=== PATIENT | female | born 1935 | race Caucasian/White ===

== ENCOUNTER 2019-08-27 10:00 | Inpatient (IN) | payer MEDICARE ==
[2019-08-26 13:45] LABS: INR 0.94 (0.85-1.15); PROTHROMBIN TIME 10.2 SEC (9.6-11.6)
[2019-08-26 14:08] LABS: APPEARANCE,URINE Clear (CLEAR); BILIRUBIN,URINE Negative (NEGATIVE); COLOR,URINE Dark Yellow (YELLOW); GLUCOSE, URINE (UA) Negative (NEGATIVE); KETONES,URINE Negative (NEGATIVE); LEUKOCYTE ESTERASE ,URINE Small (NEGATIVE); NITRATE,URINE Negative (NEGATIVE); OCCULT BLOOD,URINE Negative (NEGATIVE); PROTEIN,URINE Negative (NEGATIVE)
[2019-08-26 14:26] LABS: BACTERIA,URINE Rare /HPF (None Seen); RBC,URINE 0-1 /HPF (0-1); SQUAMOUS EPITHELIAL CELL,UR Rare /HPF (0-2)
[~2019-08-27] VITALS: Ht 172.7 cm; Wt 74.0 kg
[~2019-08-27 10:00] MED LIST: ASPI-1443 PO; CHOL200074 PO; GABA-529 PO; PANT40TA54 PO; SERT25TA5 PO; SIMV40TA59 PO; VITA1TAB39 PO
--- NOTE | 2019-08-28 11:18 | NUR ---
LABS ABNORMAL UA REPORTED TO DR. MCGRATH, FURTHER ORDERS GIVEN AND WILL BE CARRIED OUT
[2019-08-28 17:35] VITALS: BP 141/61
[2019-08-28] MEDS ORDERED: HYDR-4060 PO (18:00)
[2019-08-28] MEDS ORDERED: CLON0.1T PO (18:00)
[2019-08-28] MEDS ORDERED: CETI10TA57 PO (18:00)
[2019-08-28] MEDS ORDERED: POLY17PO4 PO (18:00)
[2019-08-31] VITALS (22 sets, daily range): BP systolic 120–187; BP diastolic 56–136
[2019-08-31] MEDS ORDERED: GENTAMICIN SULFATE 240 MG in SODIUM CHLORIDE 0.9% 100 ML IV SCH (07:15)
[2019-08-31] MEDS: CEFAZOLIN SODIUM 1 GM VIAL IVP SCH ×3 (07:30→19:00)
[2019-08-31] MEDS ORDERED: LACTATED RINGERS 1000ML 1,000 ML IV ONE (07:42)
[2019-08-31] MEDS ORDERED: TRANEXAMIC ACID 1000MG/10ML ONE ×2 (08:51→13:27)
[2019-08-31] MEDS ORDERED: CEFAZOLIN SODIUM 1 GM VIAL ONE (08:51)
[2019-08-31] MEDS ORDERED: SCOPOLAMINE HYDROBROMIDE 1 EACH ADH..PATCH TD ONE (09:35)
[2019-08-31] MEDS ORDERED: ROPIVACAINE 0.5% 5MG/ML 30ML IJ ONE (09:36)
[2019-08-31] MEDS ORDERED: ONDANSETRON HCL 4 MG/2 ML VIAL ONE (09:46)
[2019-08-31] MEDS ORDERED: LIDOCAINE PF 2% 5ML ABBOJECT ONE (09:46)
[2019-08-31] MEDS ORDERED: GLYCOPYRROLATE 1 MG/5 ML SYRINGE ONE (09:46)
[2019-08-31] MEDS ORDERED: DEXAMETHASONE SOD PHOSPHATE 10MG/ML 1ML VIAL ONE (09:46)
[2019-08-31] MEDS ORDERED: ROCURONIUM 10MG/1ML SYR 10 MG/ML ML ONE (09:47)
[2019-08-31] MEDS ORDERED: FENTANYL CITRATE PF 50 MCG/1 ML 5ML AMP IV ONE (09:47)
[2019-08-31] MEDS ORDERED: NEOSTIGMINE 5MG/5ML SYR IV ONE (09:47)
[2019-08-31] MEDS ORDERED: PROPOFOL 10 MG/ML 20ML VIAL IV ONE (09:47)
[2019-08-31] MEDS ORDERED: EPHEDRINE SULFATE 50 MG/ML AMPULE ONE (10:43)
[2019-08-31] MEDS ORDERED: HETASTARCH IN 0.9 % NACL 500 ML IV ONE (10:52)
[2019-08-31] MEDS ORDERED: CEFAZOLIN SODIUM 1 GM VIAL IRRIG ONE (11:23)
[2019-08-31] MEDS ORDERED: ESMOLOL HCL 10 MG/ML 10 ML VIAL ONE (11:31)
[2019-08-31] MEDS ORDERED: POTASSIUM CHLORIDE 10% ELIXIR 20 MEQ/15 ML UDCUP PO PRN (13:00)
[2019-08-31] MEDS ORDERED: LIDOCAINE HCL-MPF 1% 2ML VIAL IV PRN (13:00)
[2019-08-31] MEDS ORDERED: POTASSIUM CHLORIDE 20 MEQ ERTAB PO PRN (13:00)
[2019-08-31] MEDS ORDERED: FERROUS FUMARATE 324 MG TABLET PO PRN (13:00)
[2019-08-31] MEDS ORDERED: POTASSIUM CHLORIDE 20MEQ/100ML 100 ML IV PRN (13:00)
[2019-08-31] MEDS ORDERED: CALCIUM CARBONATE 500 MG TABLET PO PRN (13:00)
[2019-08-31] MEDS ORDERED: DiphenhydrAMINE HCL 50 MG/ML VIAL IVP PRN (13:00)
[2019-08-31] MEDS ORDERED: MORPHINE SULFATE 4 MG/1ML SYG ONE (13:21)
[2019-08-31] MEDS ORDERED: MEPERIDINE-PF 25 MG/ML SYG ONE ×2 (13:33→13:44)
[2019-08-31] MEDS: KETOROLAC TROMETHAMINE 15MG/ML IV PRN ×2 (13:34→19:15)
[2019-08-31] MEDS: SODIUM CHLORIDE 0.9% 1000ML 1,000 ML IV SCH ×2 (14:20→16:21)
[2019-08-31] MEDS ORDERED: POLYETHYLENE GLYCOL 3350 17 GM POWD.PACK PO PRN (15:30)
[2019-08-31] MEDS ORDERED: CLONIDINE HCL 0.1 MG TABLET PO PRN (15:30)
[2019-08-31] MEDS: ACETAMINOPHEN EXTRA STRENGTH 500 MG TABLET PO SCH ×2 (15:46→20:18)
--- NOTE | 2019-08-31 16:42 | NUR ---
LAURIE PLAN VISITED WITH PATIENT. PATIENT LIVES WITH DAUGHTER. INDEPENDENT ABLE TO PERFORM ADL'S. PATIENT HAS WALKER AND SHOWER CHAIR, BSC FROM LAST SURGERY. VERBAL CONSENT GIVEN FOR WIR. INFO FAXED. [facility] NOTIFIED. [facility] WILL CONTINUE TO FOLLOW. Addendum: 08/31/19 at 1645 by AUSTIN JIMENEZ RN CM Amended: Links added.
[2019-08-31] MEDS ORDERED: OXYCODONE HCL 5 MG TAB ONE ×3 (16:43→22:24)
--- NOTE | 2019-08-31 16:46 | NUR ---
pt was still in sever pain and pharmacy has not made the oxycodone accessable i spoke to pharmacy on the phone a 1/2 hour ago and the said they would release the hold on oxycodone since pt does take hydrocodone already at home with no allergic reactions; when i scanned the medication to give it stated it was still on hold, i did give the medications because of the pt's severe pain at that time.
[2019-08-31] MEDS ORDERED: PROMETHAZINE HCL 25 MG/ML 1ML AMPULE IM PRN (17:30)
[2019-08-31] MEDS ORDERED: HYDROMORPHONE 1 MG/1 ML AMP ONE (19:14)
[2019-08-31] MEDS ORDERED: NALOXONE HCL 0.4 MG/1 ML ML IVP PRN (19:15)
[2019-08-31] MEDS ORDERED: HYDROMORPHONE PCA 10 MG/50 ML 50 ML IV PRN (19:15)
[2019-08-31] MEDS: FAMOTIDINE 20MG TAB 20 MG TAB PO SCH (20:12)
[2019-08-31] MEDS: GABAPENTIN 100 MG CAPSULE PO SCH (20:12)
[2019-08-31] MEDS: CELECOXIB 200 MG CAP PO SCH (20:13)
[2019-08-31] MEDS: CETIRIZINE HCL 5 MG TABLET PO SCH (20:13)
[2019-08-31] MEDS: SIMVASTATIN 20 MG TABLET PO SCH (20:13)
[2019-08-31] MEDS: ASPIRIN 81MG TAB.CHEW PO SCH (20:13)
[2019-08-31] MEDS: PANTOPRAZOLE SODIUM 40 MG TABLET.DR PO SCH (20:13)
[2019-08-31] MEDS: HYDROMORPHONE 1 MG/1 ML AMP IVP PRN ×2 (21:05→23:17)
[2019-08-31] MEDS: OXYCODONE HCL 5 MG TAB PO PRN (22:27)
[2019-09-01] VITALS: BP 122/52
[2019-09-01] MEDS: CEFAZOLIN SODIUM 1 GM VIAL IVP SCH (01:07)
[2019-09-01] MEDS: HYDROMORPHONE 1 MG/1 ML AMP IVP PRN ×4 (01:08→23:14)
[2019-09-01 04:00] VITALS: BP 123/49
[2019-09-01] MEDS: ACETAMINOPHEN EXTRA STRENGTH 500 MG TABLET PO SCH ×3 (05:23→20:15)
[2019-09-01 05:49] LABS: MEAN CORPUSCULAR HEMOGLOBIN 27.9 pg (27.0-33.0); MEAN CORPUSCULAR HGB CONC 31.8 g/dL (32.0-36.0); MEAN CORPUSCULAR VOLUME 87.8 fL (79-99); RED BLOOD CELL COUNT(AUTO) 2.22 MIL/uL (4.00-5.50); WHITE BLOOD COUNT (AUTO) 8.6 K/uL (4.8-10.8)
[2019-09-01 05:51] LABS: HEMATOCRIT 19.5 % (36-48)
[2019-09-01 05:57] LABS: POTASSIUM 4.4 mmol/L (3.5-5.1)
[2019-09-01 06:47] LABS: HEMATOCRIT 19.6 % (36-48)
[2019-09-01 08:37] VITALS: BP 121/51
[2019-09-01] MEDS: SODIUM CHLORIDE 0.9% 1000ML 1,000 ML IV SCH (08:52)
[2019-09-01] MEDS ORDERED: SODIUM CHLORIDE 0.9% 250 ML IV ONE (08:52)
[2019-09-01] MEDS: SERTRALINE HCL 50 MG TABLET PO SCH (08:57)
[2019-09-01] MEDS: CHOLECALCIFEROL 2000 UNIT PO SCH (09:00)
[2019-09-01] MEDS: GABAPENTIN 100 MG CAPSULE PO SCH ×3 (09:00→20:15)
[2019-09-01] MEDS: CELECOXIB 200 MG CAP PO SCH ×2 (09:00→20:14)
[2019-09-01] MEDS: VITAMIN B COMPLEX 1 CAPSULE PO SCH (09:01)
[2019-09-01] MEDS: FAMOTIDINE 20MG TAB 20 MG TAB PO SCH ×2 (09:01→20:14)
[2019-09-01] MEDS: PANTOPRAZOLE SODIUM 40 MG TABLET.DR PO SCH ×2 (09:01→20:14)
[2019-09-01] MEDS: POLYETHYLENE GLYCOL 3350 17 GM POWD.PACK PO SCH (09:02)
[2019-09-01] MEDS: ASPIRIN 81MG TAB.CHEW PO SCH ×2 (09:02→20:14)
[2019-09-01] MEDS: KETOROLAC TROMETHAMINE 15MG/ML IV PRN (09:03)
--- NOTE | 2019-09-01 09:10 | NUR ---
FIRST UNIT OF BLOODN INITIATED; VS STABLE PRE TRANSFUSION; I DISCUSSED WITH PT SIGNS AND SYMPTOMS TO REPORT OR ANY CONCERNS AT ALL TO REPORT.
[2019-09-01] MEDS ORDERED: FUROSEMIDE 10 MG/ML 2ML VIAL IV SCH (10:00)
[2019-09-01 11:17] VITALS: BP 130/61
[2019-09-01] MEDS: OXYCODONE HCL 5 MG TAB PO PRN ×2 (12:45→20:18)
[2019-09-01 16:35] VITALS: BP 131/72
[2019-09-01 19:00] VITALS: BP 136/61
[2019-09-01] MEDS: SIMVASTATIN 20 MG TABLET PO SCH (20:14)
[2019-09-01] MEDS: CETIRIZINE HCL 5 MG TABLET PO SCH (20:14)
[2019-09-02] VITALS: BP 137/65
[2019-09-02] MEDS: HYDROMORPHONE 1 MG/1 ML AMP IVP PRN ×3 (00:54→04:43)
[2019-09-02] MEDS: OXYCODONE HCL 5 MG TAB PO PRN ×4 (01:28→15:19)
[2019-09-02 04:00] VITALS: BP 131/60
[2019-09-02] MEDS: ACETAMINOPHEN EXTRA STRENGTH 500 MG TABLET PO SCH ×3 (04:42→20:22)
[2019-09-02 05:52] LABS: HEMATOCRIT 25.8 % (36-48)
[2019-09-02 08:35] VITALS: BP 169/72
[2019-09-02] MEDS: GABAPENTIN 100 MG CAPSULE PO SCH ×3 (08:43→20:22)
[2019-09-02] MEDS: VITAMIN B COMPLEX 1 CAPSULE PO SCH (08:43)
[2019-09-02] MEDS: POLYETHYLENE GLYCOL 3350 17 GM POWD.PACK PO SCH (08:43)
[2019-09-02] MEDS: PANTOPRAZOLE SODIUM 40 MG TABLET.DR PO SCH ×2 (08:43→20:22)
[2019-09-02] MEDS: CELECOXIB 200 MG CAP PO SCH ×2 (08:44→20:22)
[2019-09-02] MEDS: CHOLECALCIFEROL 2000 UNIT PO SCH (08:44)
[2019-09-02] MEDS: FAMOTIDINE 20MG TAB 20 MG TAB PO SCH ×2 (08:44→20:22)
[2019-09-02] MEDS: ASPIRIN 81MG TAB.CHEW PO SCH ×2 (08:44→20:22)
[2019-09-02] MEDS: SERTRALINE HCL 50 MG TABLET PO SCH (08:44)
--- NOTE | 2019-09-02 16:06 | NUR ---
DC PLAN [facility] CALLED AT 2PM SAID PATIENT IS ACCEPTED GOT MOT INFO. MOT IN CHART FLAGGED NOT SIGNED. POSSIBLE DC TODAY. PATIENT WILL GO VIA PRIVATE VEHICLE. Addendum: 09/02/19 at 1607 by AUSTIN JIMENEZ RN CM Amended: Links added.
[2019-09-02 17:15] VITALS: BP 135/44
[2019-09-02 19:30] VITALS: BP 109/45
[2019-09-02] MEDS: CETIRIZINE HCL 5 MG TABLET PO SCH (20:22)
[2019-09-02] MEDS: SIMVASTATIN 20 MG TABLET PO SCH (20:22)
[2019-09-02 23:32] VITALS: BP 131/43
[2019-09-03 03:25] VITALS: BP 127/46
[2019-09-03] MEDS: ACETAMINOPHEN EXTRA STRENGTH 500 MG TABLET PO SCH ×2 (05:06→12:21)
[2019-09-03 07:49] VITALS: BP 136/48
[2019-09-03] MEDS: OXYCODONE HCL 5 MG TAB PO PRN ×2 (08:02→11:13)
[2019-09-03] MEDS ORDERED: BISACODYL 5 MG TABLET.DR PO SCH (08:15)
[2019-09-03] MEDS: VITAMIN B COMPLEX 1 CAPSULE PO SCH (08:31)
[2019-09-03] MEDS: POLYETHYLENE GLYCOL 3350 17 GM POWD.PACK PO SCH (08:31)
[2019-09-03] MEDS: FAMOTIDINE 20MG TAB 20 MG TAB PO SCH (08:31)
[2019-09-03] MEDS: CELECOXIB 200 MG CAP PO SCH (08:31)
[2019-09-03] MEDS: GABAPENTIN 100 MG CAPSULE PO SCH (08:32)
[2019-09-03] MEDS: SERTRALINE HCL 50 MG TABLET PO SCH (08:32)
[2019-09-03] MEDS: PANTOPRAZOLE SODIUM 40 MG TABLET.DR PO SCH (08:32)
[2019-09-03] MEDS: ASPIRIN 81MG TAB.CHEW PO SCH (08:32)
[2019-09-03] MEDS: CHOLECALCIFEROL 2000 UNIT PO SCH (08:32)
[2019-09-03 11:17] VITALS: BP 144/46
[2019-09-03] MEDS ORDERED: BISACODYL 10 MG SUPP.RECT RC PRN (13:00)
--- NOTE | 2019-09-03 13:20 | NUR ---
DELAY IN D/C PATIENT PENDING TO HAVE A BM. TEXTED DR MCGRATH, HE STATED TO SEND PATIENT TO REHAB ANYWAY. [facility] SUPPOSITORY GIVEN FOR CONSTIPATION.
--- NOTE | 2019-09-03 14:50 | NUR ---
DISCHARGE PATIENT GIVEN DISCHARGE INSTRUCTIONS AND EDUCATION ON FOLLOW UP APPOINTMENT, [facility] AND D/C, PAIN CONTROL, PT RECOMMENDATIONS, AND S/S TO REPORT. IV DISCONTINUED, CATHETER INTACT. NO DISTRESS NOTED UPON DISCHARGE. ALL BELONGINGS TAKEN WITH. REPORT CALLED TO MARIAA [facility]JARANO AT [facility] ON FOLLOW UP APPOINTMENT, [facility] AND D/C, PAIN CONTROL, PT RECOMMENDATIONS, AND S/S TO REPORT. NO CONCERNS VOICED. [facility] DRESSING CHANGED YESTERDAY.
== END 2019-09-03 15:20 | DRG 470 ==
LOC: DAHIP 08-31 06:03 → 3DH 08-31 13:59
PROVIDERS: ADMIT Orthopaedic Surgery; ATTEND Orthopaedic Surgery
PROC: 0SRC0J9 Replacement of Right Knee Joint with Synthetic Substitute, Cemented, Open Approach (ICD-10-PCS; principal; 2019-08-31 10:35)
PROC: 30233N1 Transfusion of Nonautologous Red Blood Cells into Peripheral Vein, Percutaneous Approach (ICD-10-PCS; 2019-09-01)
DX: M17.11 Unilateral primary osteoarthritis, right knee (principal); D62 Acute posthemorrhagic anemia; I10 Essential (primary) hypertension; E78.5 Hyperlipidemia, unspecified; K21.9 Gastro-esophageal reflux disease without esophagitis; Z96.642 Presence of left artificial hip joint; Z96.652 Presence of left artificial knee joint; Z96.611 Presence of right artificial shoulder joint; G89.29 Other chronic pain; M25.461 Effusion, right knee; I25.10 Atherosclerotic heart disease of native coronary artery without angina pectoris; M21.061 Valgus deformity, not elsewhere classified, right knee; Z88.8 Allergy status to other drugs, medicaments and biological substances; Z90.49 Acquired absence of other specified parts of digestive tract; Z90.710 Acquired absence of both cervix and uterus; Z20.828 Contact with and (suspected) exposure to other viral communicable diseases
CPT/HCPCS: 36415; 36430; 80048; 81001; 85014; 85018; 85027; 85610; 86850; 86900; 86901; 86922; 87088; 87641; 88305; 88311; 93005; 96365; 97039; G0378; J0690; J1100; J1170; J1580; J1885; J1940; J2001; J2175; J2270; J2405; J2704; J2710; J2795; J3010; J3490; J7030; J7050; J7120; P9016; U0003